=== PATIENT | male | born 1995 | race Hispanic/Latino ===

== ENCOUNTER 2019-07-28 00:43 | Emergency (ER) | payer OTHER, SELFPAY ==
--- NOTE | 2019-07-28 07:43 | RAD ---
Exam:Right hand 3 views HISTORY: Pain. COMPARISON: None FINDINGS: Mildly displaced fifth metacarpal fracture. No intra-articular extension. Associated soft t issue swelling. No additional fractures. IMPRESSION: Distal fifth metacarpal fracture.
== END 2019-07-28 04:54 | disposition home or self-care (01) ==
LOC: ERS 00:43
DX: S62.306A Unspecified fracture of fifth metacarpal bone, right hand, initial encounter for closed fracture (principal); F17.210 Nicotine dependence, cigarettes, uncomplicated; X58.XXXA Exposure to other specified factors, initial encounter
CPT/HCPCS: 26605